=== PATIENT | male | born 1970 | race Caucasian/White ===

== ENCOUNTER → 2020-07-19 | Outpatient (CLI) | payer OTHER ==
--- NOTE | 2020-07-20 08:09 | US ---
EXAM DESCRIPTION: Soft Tissue,Extremity: ULTRASOUND. CLINICAL HISTORY: 50 years Male pain. Also palpable mass in the right inguinal region. COMPARISON: None Available. TECHNIQUE: Transcutaneous scanning: [place]-scale and Doppler modes. FINDINGS: Multiple large hypoechoic circumscribed masses consistent with reactive lymph nodes in the region of palpation and tenderness. Eccentric echogenic hilum are also present. One lymph node measures 2.7 x 1.9 x 1.5 cm. A lymph node measures 3.1 x 2.2 x 1.3 cm. A third lymph node measures 2.1 x 1.0 x 0.6 cm. These large lymph nodes show increased color Doppler vascularity. Smaller lymph nodes are also present. No distinct cyst, no fluid collection, no large calcifications. IMPRESSION: Multiple enlarged reactive lymph nodes corresponding to the area of pain, tenderness, and palpable masses, right inguinal region. Consider tissue sampling if pain, tenderness, or mass effect increases. Electronically signed by: Robert Yeager MD 07/20/2020 8:08 AM [facility]
== END ==
LOC: US 09:49
PROVIDERS: ATTEND Nurse Practitioner Family
DX: R59.0 Localized enlarged lymph nodes (principal)